=== PATIENT | male | born 1975 | race Hispanic/Latino ===

== ENCOUNTER 2023-07-25 18:54 | Emergency (ER) | payer SELFPAY ==
--- NOTE | ~2023-07-25 | CT_ITS ---
EXAMINATION: CT abdomen pelvis w con DATE: 07/26/2023 00:30 INDICATION: Abdominal pain. TECHNIQUE: Computed tomography (CT) of the abdomen and pelvis was performed with 100 mL Omnipaque 350 intravenous contrast. Automated exposure control and iterative reconstruction technique were employe d. The dose-length product was 696.45 mGy-cm. COMPARISON: None. FINDINGS: The visualized portions of the lung bases demonstrate mild atelectasis. No pleural effusion . Calcified right hilar lymph nodes are consistent with old granulomatous disease. The heart size is normal. No pericardial effusion. There is a 2.1 cm mass in right hepatic lobe with interrupted periph eral puddling of contrast, consistent with a hemangioma. There are gallstones in the gallbladder, whi ch is normal in size. The spleen, pancreas, adrenal glands, and kidneys are normal. There is liquid s tool in the colon suggestive of diarrhea. The appendix is normal. There are no dilated loops of bowel . There is wall thickening of many loops of small bowel. There is wall thickening of the ascending an d transverse colon. There are no pathologically enlarged lymph nodes. There is no free intraperitonea l fluid. There is moderate thoracic and lumbar spondylosis. There is mild chronic anterior wedging of multiple vertebral bodies. IMPRESSION: 1. Enterocolitis. Reviewed, dictated and finalized at location E. IMPRESSION: 1. Enterocolitis.
[2023-07-25 19:05] VITALS: BP 126/72; PULSE 91; RESP 18; TEMP 36.8; O2SAT 98
[2023-07-25 21:06] LABS: Hematocrit 46.1 % (42.0-52.0); Mean Corpuscular HGB Conc 34.7 g/dl (32-36); Mean Corpuscular Hemoglobin 30.1 pg (26-34); Mean Corpuscular Volume 86.8 fl (80-100); Mean Platelet Volume 10.1 fl (7.4-10.4); Platelet Count Result 174 k/mm3 (150-375); Red Blood Count 5.31 M/mm3 (4.6-6.20); White Blood Count 4.9 K/mm3 (4.5-10.0)
[2023-07-25 21:23] LABS: Alanine Aminotransferase 37 U/L (6-50); Albumin Level 4.3 g/dL (3.5-5.1); Alkaline Phosphatase 64 U/L (38-126); Anion Gap 8 mmol/L (4-12); Aspartate Amino Transferase 32 U/L (17-59); Bilirubin,Total 0.6 mg/dL (0.2-1.3); Blood Urea Nitrogen 13 mg/dL (9-20); Calcium 8.9 mg/dL (8.4-10.2); Carbon Dioxide 21 mmol/L (22-30); Chloride 100 mmol/L (98-107); Estimated CRCL calculation 89 ml/min; Estimated Glomerular Filt Rate > 60; Glucose 130 mg/dL (65-110); Lipase 124 U/L (23-300); Potassium 3.3 mmol/L (3.4-5.0); Sodium 129 mmol/L (137-145)
[2023-07-25 21:28] LABS: Neutrophils Percent Manual 40 % (46-73); Total Cells Counted 100
[2023-07-25 21:29] LABS: Band Neutrophils Percent 20 % (0-6); Lymphocytes Absolute Manual 1.17 K/mm3 (1.1-4.5); Lymphocytes Percent Manual 24 % (18-44); Monocytes Absolute Manual 0.78 K/mm3 (0.1-0.90); Monocytes Percent Manual 16 % (3-9); Neutrophils Absolute Manual 2.94 K/mm3 (1.3-6.7); Ovalocytes 1+; Platelet Estimate Adequate (Adequate); Schistocytes None Seen
[2023-07-25 21:32] LABS: Appearance Urine Clear (Clear); Bacteria Urine None Seen /hpf; Bilirubin Urine Negative (Negative); Blood Urine 1+ (Negative); Color Urine Dark Yellow (Yellow); Glucose Urine UA Negative (Negative); Ketones Urine 3+ mg/dL (Negative); Leukocyte Esterase Ur Negative LEU/UL (Negative); Nitrate Urine Negative (Negative); Non Pathogenic Casts 0-2; Protein Urine 1+ mg/dL (Negative); Specific Grav Ur 1.027 (1.001-1.035); Squamous Epithelial Cell Urine None Seen /hpf (Few); Urobilinogen Urine 0.2 mg/dL (<2.0); WBC Urine 0-5 /hpf (0-3); pH Urine 6.5 (5.0-9.0)
[2023-07-25 21:38] LABS: Add Urine Microscopic? YES
[2023-07-25 23:30] VITALS: BP 129/84; PULSE 78; RESP 18; O2SAT 99
[2023-07-26] MEDS: PROCHLORPERAZINE EDISYLATE 10 MG/2 ML VIAL IV PUSH (00:27)
[2023-07-26] MEDS: SODIUM CHLORIDE 0.9% IV 1,000 ML 999 ML IV CONT (00:27)
--- NOTE | 2023-07-26 01:57 | ED.GENADULT ---
HPI - General Adult General Chief complaint: Abdominal Pain Stated complaint: abd pain N/V/D Time Seen by Provider: 07/25/23 23:37 History of Present Illness HPI narrative: Patient 48-year-old gentleman presents emergency department with chief complaint of abdominal pain nausea and diarrhea. The patient was seen at [facility] Emergency Department yesterday and continues to have diarrhea without improvement. The patient states that he is not getting any better. Patient denies fever denies localizing pain Related Data Allergies Allergy/AdvReac Type Severity Reaction Status Date / Time No Known Allergies Allergy Verified 07/25/23 18:56 Review of Systems Review of Systems: A 10 system review of systems was completed on the patient and is negative except for what is stated in the HPI. Nursing and ancillary documentation was reviewed. Exam Narrative: GENERAL: Well-appearing, well-nourished, and in no acute distress. HEAD: Normocephalic, atraumatic. EYES: PERRLA and EOMI. ENT: Nares clear, no rhinorrhea or epistaxis. Mucous membranes moist. NECK: Supple. CHEST: Clear to auscultation. No respiratory distress. HEART: Regular rate and rhythm. No murmur heard. Normal peripheral pulses. ABDOMEN: Soft, diffuse tenderness to palpation, nondistended, normal active bowel sounds. EXTREMITIES: Normal range of motion. No edema. SKIN: Warm, dry, no rash. NEURO: No focal deficits. Alert and oriented x3. PSYCH: Normal mood and affect. Course Vital Signs Vital signs: Vital Signs Temperature 36.8 C 07/25/23 19:05 Pulse Rate 91 07/25/23 19:05 Respiratory Rate 18 07/25/23 19:05 Blood Pressure 126/72 07/25/23 19:05 Pulse Oximetry 98 07/25/23 19:05 Oxygen Delivery Room Air 07/25/23 19:05 Temperature 36.8 C 07/25/23 19:05 Pulse Rate 78 07/25/23 23:30 Respiratory Rate 18 07/25/23 23:30 Blood Pressure 129/84 07/25/23 23:30 Pulse Oximetry 99 07/25/23 23:30 Oxygen Delivery Room Air 07/25/23 19:05 Medical Decision Making [facility] Narrative Medical decision making narrative: Differential diagnosis includes colitis, diverticulitis, gastroenteritis Laboratory studies were obtained on the patient which showed normal white blood cell count electrolytes showed mild hyponatremia with a sodium 129 potassium was 3.3 CO2 is 21 liver enzymes within normal limits urinalysis showed 3+ ketones CT scan of the abdomen pelvis showed enterocolitis and also 2.5 cm indeterminate hypodensity in the right lobe of the liver. They recommended repeat MRI or CT scan of to further differentiate Patient was started on Cipro and Flagyl and will be discharged to follow-up with his primary care provider Vital Signs Vital Signs: Vital Signs Temperature 36.8 C 07/25/23 19:05 Pulse Rate 91 07/25/23 19:05 Respiratory Rate 18 07/25/23 19:05 Blood Pressure 126/72 07/25/23 19:05 Pulse Oximetry 98 07/25/23 19:05 Oxygen Delivery Room Air 07/25/23 19:05 Temperature 36.8 C 07/25/23 19:05 Pulse Rate 78 07/25/23 23:30 Respiratory Rate 18 07/25/23 23:30 Blood Pressure 129/84 07/25/23 23:30 Pulse Oximetry 99 07/25/23 23:30 Oxygen Delivery Room Air 07/25/23 19:05 Lab Data 07/25/23 21:00 07/25/23 21:00 Labs: Lab Results 07/25/23 07/25/23 Range/Units 21:00 21:20 WBC 4.9 (4.5-10.0) K/mm3 RBC 5.31 (4.6-6.20) M/mm3 Hgb 16.0 (14.0-18.0) g/dL Hct 46.1 (42.0-52.0) % MCV 86.8 (80-100) fl MCH 30.1 (26-34) pg MCHC 34.7 (32-36) g/dl RDW 14.0 (11.5-14.5) % Plt Count 174 (150-375) k/mm3 MPV 10.1 (7.4-10.4) fl Immature Gran % (Auto) Not Reportable Neut % (Auto) Not Reportable Lymph % (Auto) Not Reportable [place] % (Auto) Not Reportable Eos % (Auto) Not Reportable Baso % (Auto) Not Reportable Lymph # (Auto) Not Reportable [place] # (Auto) Not Reportable Eos # (Auto) Not Repo
[2023-07-26] MEDS: metroNIDAZOLE 500 MG TABLET PO (02:14)
[2023-07-26] MEDS: CIPROFLOXACIN 500 MG TAB PO (02:14)
== END 2023-07-26 02:20 | disposition home or self-care (01) ==
PROVIDERS: Emergency Provider Emergency Medicine
DX: K52.9 Noninfective gastroenteritis and colitis, unspecified (principal)
CPT/HCPCS: 36415; 74177; 80053; 81001; 83690; 85025; 96361; 96374; 99284; A9270; J0780; J7030; Q9967

== ENCOUNTER 2023-12-20 08:41 | Outpatient (CLI) | payer SELFPAY ==
--- NOTE | ~2023-12-20 | MR_ITS ---
EXAMINATION: MR abdomen wo/w con DATE: 12/20/2023 10:17 INDICATION: Liver lesion TECHNIQUE: Magnetic resonance imaging (MRI) of the abdomen was performed without and with 15 mL Multi alex intravenous contrast. Sequences included coronal T2-weighted SS-FSE, coronal and axial FS 2D-F IESTA, axial STIR FSE, axial T2-weighted SS-FSE, axial T2-weighted FS SS-FSE, axial diffusion-weighte d SE, axial dual-echo T1-weighted FSPGR, and axial and coronal T1-weighted LAVA. Postcontrast axial T 1-weighted LAVA images were obtained in a time course. Postcontrast coronal T1-weighted LAVA images w ere obtained. COMPARISON: CT dated 07/26/2023 FINDINGS: Heart size is normal. No pericardial or pleural effusion. Unchanged small region of discoid atelectas is at the posterior medial right lower lobe. 2.7 x 1.5 cm T2 hyperintense hemangioma in the right hep atic lobe along side the inferior vena cava which demonstrates typical peripheral discontiguous puddl ing of contrast which fills in on delayed imaging. No other hepatic lesions identified. 2 mm filling defect along the nondependent gallbladder wall consistent with a likely benign gallbladder polyp. Sp [place], pancreas, bilateral adrenal glands and kidneys are normal. Bowels including the appendix are no rmal. Bladder is normal. No pathologically enlarged abdominal lymphadenopathy. Mild to moderate lumba r and lower thoracic spondylosis with normal bone marrow signal throughout. IMPRESSION: 1. 2.7 x 1.5 cm right hepatic hemangioma along side the inferior vena cava. Reviewed, dictated and finalized at location B.
--- NOTE | ~2023-12-20 | US_ITS ---
COMPLETE ABDOMINAL ULTRASOUND Ordering provider: Dru Huston, AC History: . Lesion of liver . Comparison: None. FINDINGS: LIVER: Subtle area is seen adjacent to the IVC which measures 2.5 x 3.1 x 2.2 cm. Follow-up advised. Otherwise, Normal size and echotexture. No focal hepatic lesions or perihepatic fluid collections are identified. GALLBLADDER: Echogenic structures which are not shadowing suggestive of polyps measuring 0.4 on 0.5 s een.. No evidence for stones, sludge, gallbladder wall thickening or pericholecystic fluid collection s. A negative sonographic Duque's sign was noted. BILIARY DUCTS: No evidence for intra or extrahepatic biliary dilation. Common bile duct measures 3 mm in diameter which is within normal limits. PANCREAS: Not well demonstrated. KIDNEYS: Right measures 13.3 cm in length.. There is no evidence for hydronephrosis, solid renal mass , renal calculi or perinephric fluid collections. No renal cysts. UPPER ABDOMINAL AORTA: Normal in caliber. IVC: Patent. FREE FLUID: None. IMPRESSION: 1. Gallbladder polyps. Possible subtle area in the right lobe of the liver adjacent to the IVC. other lopez unremarkable Complete ultrasound of the abdomen. Reviewed, dictated and finalized at location A. IMPRESSION: 1. Gallbladder polyps. Possible subtle area in the right lobe of the liver venecia cent to the IVC. otherwise unremarkable Complete ultrasound of the abdomen.
== END 2023-12-20 08:42 | disposition home or self-care (01) ==
PROVIDERS: PCP Physician Assistant Medical; Visit Provider Physician Assistant Medical
DX: K82.4 Cholesterolosis of gallbladder (principal); K76.9 Liver disease, unspecified
CPT/HCPCS: 74183; 76705; A9577